=== PATIENT | male | born 1955 | race Caucasian/White ===

== ENCOUNTER 2016-06-05 08:51 | Emergency (ER) | payer BC ==
[2016-06-05] MEDS ORDERED: LEVOFLOXACIN 500 MG TABLET PO ONE (10:18)
[2016-06-05] MEDS ORDERED: LEVOFLOXACIN 500 MG TABLET ONE (10:21)
[2016-06-05 10:26] VITALS: BP 107/62
--- NOTE | 2016-06-05 10:43 | ERNOTE ---
Date of Service: 06/05/16 Time Seen by Provider: 06/05/16 09:25 Stated Complaint: POSSIBLE PNEUMONIA Presenting Symptoms:: cough Source: patient Exam Limitations: no limitations Immunizations: IMMUNIZATION HX Immunizations Up to Date Yes History of Influenza Vaccine Yes Hx Pneumococcal Vaccination No Allergies/Adverse Reactions: Allergies acetaminophen [From Vicodin] Adverse Reaction (Mild, Verified 06/05/16 09:04) N/V hydrocodone bitartrate [From Vicodin] Adverse Reaction (Mild, Verified 06/05/16 09:04) N/V Home Medications: HOME MEDICATIONS Acetaminophen [Tylenol] 650 mg PO PRN 06/05/16 [Last Taken Unknown] Albuterol Sulfate [Ventolin HFA] 1 puff IH Q6H 06/05/16 [Last Taken Unknown] Aspirin 81 mg PO DAILY 06/05/16 [Last Taken Unknown] Atorvastatin Calcium [Lipitor] 20 mg PO DAILY 06/05/16 [Last Taken Unknown] Docusate Sodium [Colace] 100 mg PO DAILY 06/05/16 [Last Taken Unknown] Furosemide [Lasix] 20 mg PO DAILY 06/05/16 [Last Taken Unknown] Levofloxacin [Levaquin] 500 mg PO DAILY #10 tab 06/05/16 [Last Taken Unknown] Metoprolol Tartrate [Lopressor] 50 mg PO BID 06/05/16 [Last Taken Unknown] Omeprazole [Prilosec] 20 mg PO DAILY 06/05/16 [Last Taken Unknown] - History of Present Ilness Narrative: Patient was told to come to the ED to get a chest x-ray. He relates he had cardiac bypass surgery on the of this month. He has been exposed to multiple family members with URI and bronchitis. 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 He was started on lasix for leg swelling. His cough has worsened, no hemoptysis. He called his doctor due to increased cough and was told to come to the ED for a CXR. No fever. He relates post op incisional pain with cough, no other CP. Timing: constant Severity: moderate Frequency/Possible Cause: Reports: other - UTi/bronchitis exposure Modifying Factors - Improves: Reports: nothing Modifying Factors - Worsens: Reports: nothing Associated Symptoms: Reports: cough, other - some DAVILA with cough only. Denies: wheezing Prior Treatment: Reports: recently seen Review of Systems - Review of Systems Constitutional: Absent: fever ENT: Present: no symptoms reported Respiratory: Present: See HPI Cardiology: Present: See HPI Gastrointestinal/Abdominal: Present: abdominal pain. Absent: vomiting, diarrhea Genitourinary: Present: no symptoms reported Neurological: Absent: weakness - Patient's Past Medical History Patient History - Medical: No pertinent hx Patient History - Cardiac/Respiratory: Coronary Heart Disease Patient History - Cancer: No Hx of Cancer Patient History - Surgical Procedures: Colonoscopy, Other Patient History - Other: None - Social History Living Situations: spouse Smoking Status: Former smoker Have you smoked in the past 12 months: No Do you dip or chew tobacco: No Patient requests Smoking Cessation Consult: No Initiate information on Smoking Cessation: No Alcohol Use: occasionally Drug Use: none - Immunizations Immunizations Up to Date: Yes Hx Pneumococcal Vaccination: No History of Influenza Vaccine: Yes Physical Exam - Physical Exam General Appearance: Present: alert, no apparent distress, other - Alert, pleasnt , sitting on the exam table, speaking in full sentences, no distress. Non- toxic. Occasional cough. Eye Exam: Normal inspection: bilateral, PERRL: bilateral Ears, Nose, Throat: Present: normal ENT inspection Neck: Present: normal inspection Respiratory: Present: no respiratory distress, no accessory muscle use, lungs clear, other - incision healing well. There are tubular breath sounds left base. No distress. Gastrointestinal/Abdominal: Present: normal bowel sounds, nontender Back Exam: Present: normal range of motion Extremity Exam: Present: other - mild pretibial edema. No findings of DVT. Neurological Exam: Absent: motor weakness Skin Exam: Present: other - incision healing well. ED Progress - Results and Orders Patient's Lab Results:: I have reviewed the patient's lab results. - Vital Signs Patient's Vital Signs:: I have reviewed the patient's vital signs. Vital Signs: Vital Signs 06/05/16 06/05/16 08:57 10:24 Temperature 36.2 C L 36.2 C L Pulse Rate 91 86 Respiratory 18 18 Rate Blood Pressure 129/67 107/62 O2 Sat by Pulse 94 94 Oximetry - X-Ray X-Ray #1 X-Ray: chest Interpretation: Interp. by me X-ray Comments: I reviewed the CXR. Mild bilateral pleural effusions. Left pneumonia likely/. - Progress/Reassessment Chief Complaint: Cough Progress Note-Subjective: 06/05/16 10:[address] Lamb who was men's custom hair piece consultant for Dr Guaman. Levaquin recommended with call to Dr Guaman tuesday. Pt agreeable. Non-toxic, no distress. I discussed warning signs and reasons to return as well as the need for close f/u. Departure - Departure Clinical Impression: Cough Disposition: Home self-care Instructions: Cough, Adult, [id number] Additional Instructions: Rest. Fluids. Take antibiotic as directed. Call your doctor Tuesday for a follow-up appointment. Return for fever, shortness of breath or if your condition worsens or changes in any way. Referrals: Kori Locke, [Primary Care Provider] - Prescriptions: Levofloxacin [Levaquin] 500 mg PO DAILY #10 tab
== END 2016-06-05 11:14 | disposition home or self-care (01) ==
LOC: ER 08:51
DX: R05 Cough (principal); Z87.891 Personal history of nicotine dependence

== ENCOUNTER 2016-07-19 13:16 | Emergency (ER) | payer BC ==
[2016-07-19 13:47] LABS: Hematocrit 41.2 % (42.0-52.0); Hemoglobin 13.1 gm/dL (13.5-18.0); Mean Cell Volume 94.1 fl (78-100); Mean Corpuscular Hemoglobin 29.9 pg (27-31); Mean Corpuscular Hgb Conc 31.8 g/dl (32-36); Neutrophil # 5.1 K/mm3 (1.3-6.0); Neutrophil % 60.2 % (42-75.0); Platelet Count 241 K/mm3 (150-450); Red Blood Count 4.38 M/mm3 (4.7-6.0); Red Cell Distribution Width 15.3 % (11.5-14.0); White Blood Count 8.5 K/mm3 (4.0-10.5)
[2016-07-19 13:53] LABS: INR 1.35 INR (0.90-1.10); Partial Thrombolplastin Time 34.4 Seconds (24-32)
[2016-07-19 13:58] LABS: Albumin * 3.4 gm/dl (3.4-5.0); Anion Gap 10.9 mmol/L (6.8-13.8); BUN/Creatinine Ratio 14.5 (9.0-21.6); Bilirubin, Total 0.3 mg/dL (0.0-1.1); Ca. Corrected For Albumin 9.4 mg/dL (8.4-10.2); Calcium * 9.2 mg/dL (7.9-10.9); Carbon Dioxide 30.1 mmol/L (24-32.6); Total Protein 7.7 gm/dL (6.2-8.2)
--- NOTE | 2016-07-19 14:23 | ERNOTE ---
Neuro HPI ER Record Presenting Symptoms: weakness, facial droop Time Seen by Provider: 07/19/16 13:27 Source: patient Exam Limitations: no limitations Immunizations: IMMUNIZATION HX Immunizations Up to Date Yes History of Influenza Vaccine No Hx Pneumococcal Vaccination No Allergies/Adverse Reactions: Allergies Allergy/AdvReac Type Severity Reaction Status Date / Time hydrocodone bitartrate AdvReac Mild N/V Verified 07/19/16 13:38 [From Vicodin] Home Medications: HOME MEDICATIONS Albuterol Sulfate [Ventolin HFA] 1 puff IH Q6H 06/05/16 [Last Taken Unknown] Aspirin 81 mg PO DAILY 06/05/16 [Last Taken Unknown] Furosemide [Lasix] 20 mg PO DAILY 06/05/16 [Last Taken Unknown] Metoprolol Tartrate [Lopressor] 50 mg PO BID 06/05/16 [Last Taken Unknown] Omeprazole [Prilosec] 20 mg PO DAILY 06/05/16 [Last Taken Unknown] Pravastatin Sodium 10 mg PO 07/19/16 [Last Taken Unknown] Rivaroxaban [Xarelto] 15 mg PO DAILY 07/19/16 [Last Taken Unknown] predniSONE [Prednisone] 10 mg PO DAILY #35 tablet 07/19/16 [Last Taken Unknown] - History of Present Illness Narrative: Pt has had pain below/behind his right ear for 2 days and this AM around 08:00 he began to have difficulty keeping his right eye closed and right facial drooping. Onset: sudden onset Severity: moderate - Character of Deficits New weakness: Present: facial (rt) Altered sensation: Present: facial (rt) Additional Deficits: Absent: vision problems, impaired speech Baseline Cognition: Present: alert, oriented x 4 Review of Systems - Review of Systems Constitutional: Absent: recent illness, fever EYE: Present: no symptoms reported ENT: Present: ear pain - behind right ear Respiratory: Present: no symptoms reported Cardiology: Present: no symptoms reported Gastrointestinal/Abdominal: Present: no symptoms reported Genitourinary: Present: no symptoms reported Musculoskeletal: Absent: back pain, neck pain Skin: Absent: rash Neurological: Present: See HPI Endocrine: Present: no symptoms reported Hematologic/Lymphatic: Present: no symptoms reported Psych: Present: no symptoms reported - Patient's Past Medical History Patient History - Medical: No pertinent hx Patient History - Cardiac/Respiratory: Coronary Heart Disease, CHF, Hypertension , Hyperlipidemia, Myocardial Infarction, Pneumonia Patient History - Cancer: No Hx of Cancer Patient History - Surgical Procedures: Colonoscopy, Coronary Bypass Surgery, Other Patient History - Other: None - Social History Living Situations: home Abuse History: No History of abuse Psych History: No pertinent hx Smoking Status: Never smoker Have you smoked in the past 12 months: No Do you dip or chew tobacco: No Alcohol Use: occasionally Drug Use: none - Immunizations Immunizations Up to Date: Yes Hx Pneumococcal Vaccination: No History of Influenza Vaccine: No Physical Exam - Physical Exam General Appearance: Present: wd/wn, alert, mild distress Eye Exam: Normal inspection: bilateral, PERRL: bilateral Ears, Nose, Throat: Present: normal except - - right facial droop and right upper lid weakness Neck: Present: normal inspection, nontender Respiratory: Present: no respiratory distress, lungs clear Cardiovascular/Chest: Present: regular rate, rhythm, no murmur Back Exam: Present: normal inspection Extremity Exam: Present: normal inspection, normal range of motion Neurological Exam: Present: alert, oriented, normal mood/affect, motor weakness - right face and tongue. right eye difficulty closing Skin Exam: Present: normal color, warm/dry Lymphatic Exam: Present: no adenopathy Josem Coma Scale - Assess Eye Opening: Spontaneous Motor: Obeys Commands Verbal: Oriented - Total Coma Scale Total: 15 Initial Stroke Assessment - NIH Stroke Scale Level of Consciousness: Alert LOC Questions (Year and Age): Answers both correctly LOC Commands (open/close eyes/fist): Performs both correctly Lateral Gaze Paresis: None Visual Field Loss: No visual loss Facial Palsy: Partial facial paralysis Right Arm Motor (10 sec hold): No drift Left Arm Motor (10 sec hold): No drift Right Leg Motor (5 sec hold): No drift Left Leg Motor (5 sec hold): No drift Limb Ataxia (finger/nose heel/bear): Absent Sensory Loss (pinprick arms/legs/face): Mild, aware yet dulled Language Aphasia (description/naming/reading): No aphasia; normal Dysarthria (speech clarity): Normal articulation Neglect Inattention (visual/tactile/auditory/spatial/person): No neglect Initial Stroke Scale Score:: 3 Stroke Inclusion/Exclusion Cri - Inclusion Questions: Yes Onset of symptoms <3 1/2 hours of admission to ETC: No - Exclusion Questions: Major symptoms rapidly improving: No Seizure at onset of stroke: No SBP>185; DBP>110 at time treatment is to begin: No Patient received Heparin or Coumadin within 48 hours: No Patient has elevated PTT or Protime/INR: Yes Stroke, head injury, major surgery, serious trauma in 3 mon.: No Previous intracranial hemmorhage: No Recent WI: No Known AV malformation or aneurysm: No Blood glucose <50mg/dl or >400mg/dl: No NIHSS Score <4 or >22 performed by physician: Yes ED Progress - Results and Orders Patient's Lab Results:: I have reviewed the patient's lab results. Results and Orders: Laboratory Tests 07/19/16 07/19/16 07/19/16 13:30 13:30 13:41 WBC 8.5 Hgb 13.1 L Hct 41.2 L Plt Count 241 PT 14.0 H INR (Anticoag Therapy) 1.35 H PTT (Alberto) 34.4 H Sodium 143 H Potassium 4.0 Chloride 106 Carbon Dioxide 30.1 Anion Gap 10.9 BUN 16 Creatinine 1.10 Est GFR (Non-Af Amer) 72 Random Glucose 118 H Calcium 9.2 Total Bilirubin 0.3 AST 16 ALT 23 Alkaline Phosphatase 112 Total Protein 7.7 Albumin 3.4 - Vital Signs Patient's Vital Signs:: I have reviewed the patient's vital signs. Vital Signs: Vital Signs 07/19/16 07/19/16 13:32 13:38 Temperature 36.8 C Pulse Rate 85 88 Respiratory 13 17 Rate Blood Pressure 176/84 176/84 O2 Sat by Pulse 99 96 Oximetry - X-Ray X-Ray #1 X-Ray: chest Interpretation: Reviewed by me X-ray Comments: Hypoinflated lungs with basilar atelectasis versus scars. Mild increased vascular markings - CT/Ultrasound CT/Ultrasound Narrative: Ct head showed no acute changes - Progress/Reassessment Chief Complaint: CerebroVascular Accident Progress Note-Subjective: 07/19/16 14:22 discussed findings with patient and family. I believe it is a bells palsy and Pt. was outside TPA time frame and is already on NOAC. Departure Clinical Impression: Fairchild palsy - Departure Disposition: Home Follow Up Needed Condition: Fair Instructions: Fairchild Palsy Additional Instructions: May use Refresh PM eye ointment at bedtime to keep eye from drying out. Use artificial tears during the day to keep eye moist Referrals: Kori Locke DO [Primary Care Provider] - Prescriptions: predniSONE [Prednisone] 10 mg PO DAILY #35 tablet
[2016-07-19 14:48] VITALS: BP 158/88
== END 2016-07-19 14:42 | disposition home or self-care (01) ==
LOC: ER 13:16
DX: G51.0 Bell's palsy (principal); I10 Essential (primary) hypertension; I50.9 Heart failure, unspecified

== ENCOUNTER 2017-07-07 23:18 | Emergency (ER) | payer OTHER, BC ==
[2017-07-07] MEDS ORDERED: HYDROmorphone HCL 1 MG/ML DISP.SYRIN IM ONE (23:38)
[2017-07-07] MEDS ORDERED: HYDROmorphone HCL 2 MG/ML VIAL ONE (23:43)
[2017-07-07] MEDS ORDERED: HYDROmorphone HCL 2 MG/ML VIAL IM ONE (23:47)
--- NOTE | 2017-07-08 00:21 | ERNOTE ---
Lower Extremity HPI - Narrative Date of Service: 07/08/17 - General Lower Extremities Pain: leg: right Time Seen by Provider: 07/07/17 23:30 Source: patient, family Exam Limitations: no limitations - Immun/Allergies/Home Medications Immunizations: IMMUNIZATION HX Immunizations Up to Date Yes History of Influenza Vaccine No Hx Pneumococcal Vaccination No Allergies/Adverse Reactions: Allergies Allergy/AdvReac Type Severity Reaction Status Date / Time hydrocodone bitartrate AdvReac Mild N/V Verified 07/07/17 23:34 [From Vicodin] Home Medications: HOME MEDICATIONS Albuterol Sulfate [Ventolin HFA] 1 puff IH Q6H 06/05/16 [Last Taken Unknown] Aspirin 81 mg PO DAILY 06/05/16 [Last Taken Unknown] Furosemide [Lasix] 20 mg PO DAILY 06/05/16 [Last Taken Unknown] Metoprolol Tartrate [Lopressor] 50 mg PO BID 06/05/16 [Last Taken Unknown] Omeprazole [Prilosec] 20 mg PO DAILY 06/05/16 [Last Taken Unknown] Pravastatin Sodium 10 mg PO 07/19/16 [Last Taken Unknown] Rivaroxaban [Xarelto] 15 mg PO DAILY 07/19/16 [Last Taken Unknown] predniSONE [Prednisone] 10 mg PO DAILY #35 tablet 07/19/16 [Last Taken Unknown] - History of Present Illness Narrative: patient at work , slipped between metal bars and hurt right lower leg and buttock Occurred: just prior to arrival Location of Incident: work Method of Injury: Reports: fell, direct blow Reason for Fall: Reports: lost balance, slipped Loss of Consciousness: Reports: no loss of consciousness Modifying Factors - (Improves): Reports: rest Modifying Factors - (Worsens): Reports: movement Associated Symptoms: Reports: unable to bear weight Other Injuries: Reports: other - right buttock Subsequent Symptoms: Reports: other - none Review of Systems - Narrative Narrative: unremarkable - Review of Systems Constitutional: Present: See HPI EYE: Present: see HPI ENT: Present: See HPI Respiratory: Present: See HPI Cardiology: Present: See HPI Gastrointestinal/Abdominal: Present: See HPI Genitourinary: Present: See HPI Musculoskeletal: Present: other - pain and swelling to lower right leg, also pain in right buttock Skin: Present: no symptoms reported Neurological: Present: no symptoms reported, pre-existing deficit Endocrine: Present: no symptoms reported - Narrative Narrative: unremarkable - Patient's Past Medical History Patient History - Medical: No pertinent hx Patient History - Cardiac/Respiratory: Coronary Heart Disease, CHF, Deep Vein Thrombosis, Hypertension, Hyperlipidemia, Myocardial Infarction, Pneumonia Patient History - Cancer: No Hx of Cancer Patient History - Surgical Procedures: Colonoscopy, Coronary Bypass Surgery, Orthopedic Patient History - Other: None - Family History Family History:: no untoward family reactions to anesthesia, no familial bleeding tendencies, no family history of clotting disorders, no family history of premature - Social History Living Situations: home Abuse History: No History of abuse Psych History: No pertinent hx Smoking Status: Former smoker Have you smoked in the past 12 months: No Do you dip or chew tobacco: No Patient requests Smoking Cessation Consult: No Initiate information on Smoking Cessation: No Alcohol Use: occasionally Drug Use: none - Immunizations Immunizations Up to Date: Yes Hx Pneumococcal Vaccination: No History of Influenza Vaccine: No Physical Exam - Physical Exam General Appearance: Present: moderate distress Head Exam: Present: normal inspection, no evidence of injury Eye Exam: Normal inspection: bilateral, PERRL: bilateral, EOMI: bilateral Ears, Nose, Throat: Present: normal ENT inspection Neck: Present: normal inspection, nontender Respiratory: Present: no respiratory distress, normal breath sounds, no accessory muscle use, chest nontender, lungs clear Cardiovascular/Chest: Present: regular rate, rhythm, no murmur, normal peripheral pulses Peripheral Pulses: N=norm/S=strong/W=weak/B=bound/A=absent: Carotid (R): Normal , Carotid (L): Normal, Radial (R): Normal, Radial (L): Normal, Femoral (R): Normal, Femoral (L): Normal, Dorsalis-pedis (R): Normal, Dorsalis-pedis (L): Normal Gastrointestinal/Abdominal: Present: normal bowel sounds, nontender, nondistended, soft, no organomegaly Back Exam: Present: other - painn and tenderness to right buttock Extremity Exam: Present: other - abraision and contusion to anterior right lower leg Neurological Exam: Present: alert, oriented, normal mood/affect, no motor/ sensory deficits DTR: N=norm/NB=norm/brisk/A=abs/DD=dull/dimin/HC=hyperactive: Bicep (R): Normal , Bicep (L): Normal, Tricep (R): Normal, Tricep (L): Normal, Knee (R): Normal, Knee (L): Normal, Ankle (R): Normal, Ankle (L): Normal Skin Exam: Present: normal color, warm/dry Lymphatic Exam: Present: no adenopathy ED Progress - Date and Time Seen: Date and Time: 07/08/17 00:19 patientt improved discussed results of x-rays with patient - Vital Signs Patient's Vital Signs:: I have reviewed the patient's vital signs. Vital Signs: Vital Signs 07/07/17 23:28 Temperature 36.6 C Pulse Rate 71 Respiratory 18 Rate Blood Pressure 145/92 O2 Sat by Pulse 96 Oximetry - X-Ray X-Ray #1 X-Ray: leg - no apparrent fx, pelvis negative Interpretation: Interp. by me - Progress/Reassessment Chief Complaint: Lower Extremity Pain/ Injury Progress:: Improved - Transfer of Care Expected Disposition: Discharge Plan - Plan Plan: to be discharged Departure Clinical Impression: Contusion of leg, right - Departure Disposition: Home self-care Condition: Fair Instructions: Hematoma, [id number] Referrals: Kori Locke DO [Primary Care Provider] -
[2017-07-08 01:42] VITALS: BP 111/69
== END 2017-07-08 00:30 | disposition home or self-care (01) ==
LOC: ER 23:18